=== PATIENT | female | born 1985 | race Caucasian/White ===

== ENCOUNTER 2016-09-08 09:38 | Inpatient (IN) | payer BC ==
--- NOTE | 2016-09-07 21:37 | PCM.LDHP ---
L&D History of Present Illness - General Date of Service: 09/08/16 Admit Problem/Dx: Admission Diagnosis/Problem Admission Diagnosis/Problem Source of Information: Patient History Limitations: Reports: No Limitations - History of Present Illness Introduction:: Reason for admission elective primary section, breech, history of abruptio placenta with demise last History present illness: The patient is a 30-year-old 7 para 3314 white female who is presently at 37-0/7 weeks gestational age upon admission for elective primary section. Patient has a breech presenting baby. This is confirmed by ultrasound and clinical exam. She has a history of an abruption placenta which occurred with her last resulting in demise, a consumptive coagulopathy was requirement for packed red blood cell, platelet and fresh frozen plasma replacement. Patient is admitted early to avoid potential recurrence of this and is scheduled for a primary section because of breech presentation. The procedure of primary section, its risks, benefits and alternatives including attempt at cephalic version or vaginal breech delivery discussed in detail. She appears to understand the risks , benefits, follow-up and alternatives and wishes to proceed with section. Consent is signed. INTERN history: 7 para 3314. Patient's last menstrual period was definite and started on 12/24/2015. She has monthly cycles. No contraception is time of her LMP. Her previous deliveries included the followin. Male infant born 10/15/2004-37 week-8 lbs. 7 oz.-spontaneous vaginal delivery- [place] 2. Female born [birth year]30/2007-37 weeks-7 lbs. 8 oz. -spontaneous vaginal delivery- labor-[place] 3. Female born 09/30/2007-38 weeks-elective induction-[place] 4. Miscarriage-08/04/2010 5. Male born 06/16/2012-34 weeks-4 lbs. 2 oz.-Yusdzjgj-lvwynokwu-yvvgivm hypertension-[place] 6. Male born 06/24/2015-35 weeks qwjubwlzs-WSOJ-yeadmtuce-complete abruption with resultant consumptive coagulopathy with requirement for blood products Patient's course has been relatively unremarkable. She received betamethasone at 24 weeks gestational age in anticipation of possible need for early delivery. She declined genetic testing. Abram Lucas depression screening 05/09/2016-normal. B strep screen was negative. History of macrosomic infant-first -9 lbs. 0 oz. risk of preeclampsia with last . Cervical intraepithelial neoplasia 3 on colposcopic directed biopsy done early in . T Dap declined course patient was initially seen on 03/15/2016. She was seen on a regular basis including a weekly basis since 30 weeks gestation. Her weight gain was from 181.2 pounds up to 234 pounds for a 53 pound weight gain. Fundal height has been ahead of schedule. Patient has had multiple ultrasounds with first ultrasound done at 12 weeks and 4 days. All ultrasounds have been essentially consistent with dates but showing a pattern which is placing the baby at a larger for gestational age weight. Baby was in a breech presentation on last evaluation in clinic. Laboratory testing in : Blood is A+, antibody screen is negative. First hemoglobin was 14.9 g/dL. Platelets 269,000. Varicella titer is equivocal. Rubella shows immunity. RPR is nonreactive. Hepatitis B and HIV assays were negative. GC and chlamydia assays negative. Second trimester testing shows a hemoglobin of 13.1 and platelets 206,000. Her 1 hour GTT was normal at 122. Group B strep screen was negative. Allergies: None Medications: 1. vitamins 2. Iron inform ferrous sulfate 325 mg per day. Past medical history: 1. Cervical intraepithelial neoplasia 3 per colposcopic directed biopsies done in [place] 2. History of vaginal delivery 5. 3. History of complete abruption of placenta, consumptive coagulopathy with need for blood product replacement, placement of the Bakra balloon to stop bleeding. 4. induced hypertension with previous 5. Depression with last 6. Cardiac issues with change in rhythm that apparently occurred with epidural per patient history Past surgical history: 1. Laparoscopic cholecystectomy 2004 2. Right oophorectomy/cyst removal 2013 3. Tonsillectomy and adenoidectomy 1995 Family history: Mother is alive and well. Father is also alive and well. One brother and one sister alive and well. Maternal grandmother is secondary lung cancer-was a smoker. Maternal grandfather liver cancer-was abusive of alcohol and tobacco. Paternal grandmother secondary to breast cancer. Grandfather , cause unknown. No clotting, bleeding, anesthesia problems noted in the family. Social history: Patient is . is Kevin Mckinney. She does not use any significant loss of alcohol, drugs or tobacco. 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 She lives in [place]. Review of systems: In general patient has no complaints. Baby has been active skin-negative Cardiovascular-no chest pain, exercise intolerance Respiratory-No concerns with infectious symptoms or asthma Breasts-Negative other than changes associated with GI -negative -changes associated with Musculoskeletal-minimal edema Neurologic-negative Physical exam: General the patient is a well-developed, well-nourished, pleasant female stated age in no acute distress. Skin is warm and dry without lesions. HEENT, neck and back within normal limits Lungs are clear with good breath sounds in all lung tello. Cardiovascular exam shows regular rate and rhythm without murmurs. Breast exam deferred having that done at first visit and found to be normal. Fundal height is consistent with dates at 40 weeks gestation Cervix shows no change today from 2 cm/80% effaced/-4/soft/mid position from 2 weeks ago Extremities show no significant edema. Neurologic unremarkable - Related Data Allergies/Adverse Reactions: Allergies Allergy/AdvReac Type Severity Reaction Status Date / Time No Known Allergies Allergy Verified 09/02/16 10:18 Home Medications: Home Meds Pnv No.122/Iron/Folic Acid [ Multi Tablet] 1 each PO DAILY 09/02/16 [ History] Past Medical History - Past Health History Medical/Surgical History: Denies Medical/Surgical History Cardiovascular History: Reports: Other (See Below) Gastrointestinal History: Reports: None INTERN History: Reports: Other OB/BYN History: Hx of Pre-eclampsia with last Hematologic History: Reports: Anemia Other Hematologic History: Fibrinogen 53.3[L], INR 1.38, PT 14.8 [H], Plt 138K, Fibrin Degrad. Product 20 ug/ml [H] - Past Surgical History HEENT Surgical History: Reports: Tonsillectomy GI Surgical History: Reports: Cholecystectomy Female Surgical History: Reports: Oophorectomy Social & Family History - Tobacco Use Smoking Status *Q: Never Smoker Used Tobacco, but Quit: Yes Month Tobacco Last Used: NA Second Hand Smoke Exposure: No - Recreational Drug Use Recreational Drug Use: No H&P Review of Systems - Review of Systems: Review Of Systems: See Below L&D Exam - Exam Exam: See Below - Vital Signs Weight: 101.151 kg Problem List Initiated/Reviewed/Updated: Yes Assessment/Plan Comment:: Assessment: 1. 37-0/7 week intrauterine upon admission for elective repeat section. Baby is in a peter breech presentation. 2. Patient has a history of a complete abruption of placenta in 2016 with resultant consumptive coagulopathy requiring platelets, fresh frozen plasma and packed red blood cell transfusion. Bakra was also placed intrauterine to decrease bleeding 3. History of -induced hypertension with previous 4. Group B strep negative. 5. T dap vaccines declined 6. Patient plans to nurse 7. Patient declined genetic testing 8. History of macrosomia, first , 9 lbs. 0 oz. 9. History of AMILCAR-3 on colposcopic directed biopsy during Plan: 1. Primary low uterine segment transverse section through Pfannenstiel skin incision under spinal block. Procedure, risks, benefits, alternatives of care all discussed in detail the patient. She appears to understand, wishes to proceed and has signed a consent. 2. DVT prophylaxis with SCDs 3. Will make sure a CBC, urinalysis and type and screen are performed prior to surgery 4. Ancef 2 g IV preop for infection prophylaxis 5. Encourage nursing behavior 6. Chemical Equipment Controller to be in attendance at time of delivery.
[2016-09-08] MEDS ORDERED: Bupivacaine 0.5% 30 ML SDV ONE (10:53)
[2016-09-08] MEDS ORDERED: ceFAZolin 1 GM Vial ONE (11:07)
[2016-09-08] MEDS ORDERED: Morphine PF 10 MG/10 ML SDV ONE (11:07)
[2016-09-08] MEDS ORDERED: Citric Acid/Sodium Citrate Solution 30 ML Cup PO ONE (11:08)
[2016-09-08] MEDS ORDERED: Metoclopramide 10 MG/2 ML SDV IVPUSH ONE (11:08)
[2016-09-08] MEDS ORDERED: Sodium Chloride 0.9% 10 ML Syringe FLUSH PRN (11:08)
[2016-09-08] MEDS ORDERED: Oxytocin 10 Units/1 ML SDV ONE ×2 (11:14→12:38)
[2016-09-08] MEDS ORDERED: Lactated Ringers 1,000 ML IV SCH (11:15)
--- NOTE | 2016-09-08 11:24 | PCM.PREANE ---
Preanesthetic Assessment - Anesthesia/Transfusion/Family Hx Anesthesia History: Prior Anesthesia Without Reaction Family History of Anesthesia Reaction: No Transfusion History: Prior Transfusion Without Reaction - Review of Systems General: No Symptoms Pulmonary: No Symptoms Cardiovascular: No Symptoms Gastrointestinal: No Symptoms Neurological: Seizure (at the age of 4) Other: Reports: None - Physical Assessment NPO Status Date: 09/07/16 NPO Status Time: 00:00 Pulse: 82 O2 Sat by Pulse Oximetry: 97 Respiratory Rate: 15 Blood Pressure: 116/70 Temperature: 36.7 C Vital Signs: Last Vital Signs Temp 36.7 C 09/08/16 11:01 Pulse 82 09/08/16 11:01 Resp 15 09/08/16 11:01 BP 116/70 09/08/16 11:01 Pulse Ox 97 09/08/16 11:01 Height: 1.65 m Weight: 105.233 kg ASA Class: 2 Mental Status: Alert & Oriented x3 Airway Class: Mallampati = 1 Dentition: Reports: Normal Dentition Thyro-Mental Finger Breadths: 3 Mouth Opening Finger Breadths: 3 ROM/Head Extension: Full Lungs: Clear to Auscultation, Normal Respiratory Effort Cardiovascular: Regular Rate, Regular Rhythm - Allergies Allergies/Adverse Reactions: Allergies Allergy/AdvReac Type Severity Reaction Status Date / Time No Known Allergies Allergy Verified 09/02/16 10:18 - Anesthesia Plan Pre-Op Medication Ordered: Antacids - Acknowledgements Anesthesia Type Planned: Spinal Pt an Appropriate Candidate for the Planned Anesthesia: Yes Alternatives and Risks of Anesthesia Discussed w Pt/Guardian: Yes Pt/Guardian Understands and Agrees with Anesthesia Plan: Yes PreAnesthesia Questionnaire - Past Health History Medical/Surgical History: Denies Medical/Surgical History HEENT History: Reports: None Cardiovascular History: Reports: Other (See Below) Gastrointestinal History: Reports: None Genitourinary History: Reports: None 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 Hx of Pre-eclampsia with last Hematologic History: Reports: Anemia Other Hematologic History: hx with previous Fibrinogen 53.3[L], INR 1.38, PT 14.8 [H], Plt 138K, Fibrin Degrad. Product 20 ug/ml [H] - Past Surgical History HEENT Surgical History: Reports: Tonsillectomy GI Surgical History: Reports: Cholecystectomy Female Surgical History: Reports: Oophorectomy - SUBSTANCE USE Smoking Status *Q: Never Smoker Tobacco Use Within Last Twelve Months: No Second Hand Smoke Exposure: No Days Per Week of Alcohol Use: 0 Number of Drinks Per Day: 0 Total Drinks Per Week: 0 Recreational Drug Use History: No - HOME MEDS Home Medications: Home Meds Pnv No.122/Iron/Folic Acid [ Multi Tablet] 1 each PO DAILY 09/02/16 [ History] - CURRENT (IN HOUSE) MEDS Current Meds: Current Medications Lactated Ringer's (Ringers, Lactated) 1,000 mls @ 125 mls/hr IV ASDIRECTED [facility] Sodium Chloride (Saline Flush) 10 ml FLUSH ASDIRECTED PRN PRN Reason: Keep Vein Open Discontinued Medications Bupivacaine HCl (Marcaine 0.5%) Confirm Administered Dose 30 ml .ROUTE .STK-MED ONE Stop: 09/08/16 10:54 Cefazolin Sodium (Ancef) Confirm Administered Dose 2 gm .ROUTE .STK-MED ONE Stop: 09/08/16 11:08 Citric Acid/Sodium Citrate (Bicitra Solution) 30 ml PO ONETIME ONE Stop: 09/08/16 11:09 Metoclopramide HCl (Reglan) 10 mg IVPUSH ONETIME ONE Stop: 09/08/16 11:09 Morphine Sulfate (Duramorph Pf) Confirm Administered Dose 10 mg .ROUTE .STK-MED ONE Stop: 09/08/16 11:08 Oxytocin (Pitocin) Confirm Administered Dose 10 unit .ROUTE .STK-MED ONE Stop: 09/08/16 11:15
[2016-09-08] MEDS ORDERED: Phenylephrine/Normal Saline 100 MCG/ML 10 ML Syringe ONE ×2 (12:15→12:33)
[2016-09-08] MEDS ORDERED: Lactated Ringers 1,000 ML ONE ×2 (12:37)
[2016-09-08] MEDS ORDERED: ePHEDrine/Normal Saline 25 MG/5 ML Syringe ONE (12:54)
--- NOTE | 2016-09-08 13:18 | PCM.POSTAN ---
POST ANESTHESIA ASSESSMENT - MENTAL STATUS Mental Status: Alert, Oriented - VITAL SIGNS Pulse Rate: 86 SaO2: 94 Resp Rate: 16 Blood Pressure: 82/45 Temperature: 36.1 C - RESPIRATORY Respiratory Status: respiratory rate WNL, Airway Patent, O2 Saturation Stable, Supplemental Oxygen - CARDIOVASCULAR CV Status: Pulse Rate WNL, Blood Pressure Stable - GASTROINTESTINAL GI Status: No Symptoms - PAIN Pain Score: 0 - POST OP HYDRATION Hydration Status: Adequate & Stable - OBSERVATIONS Free Text/Narrative:: NO ANESTHESIA COMPLICATIONS NOTED
[2016-09-08] MEDS ORDERED: Dextrose 5%-Lactated Ringers 1,000 ML IV SCH (14:05)
[2016-09-08] MEDS ORDERED: Naloxone 0.4 MG/ML SDV IVPUSH PRN (14:05)
[2016-09-08] MEDS ORDERED: Lanolin 100% Cream 7 GM Tube TOP PRN (14:05)
[2016-09-08] MEDS ORDERED: Docusate Sodium 100 MG Cap PO PRN (14:05)
[2016-09-08] MEDS ORDERED: ePHEDrine 50 MG/ML SDV IVPUSH PRN (14:05)
[2016-09-08] MEDS ORDERED: diphenhydrAMINE 50 MG/ML SDV IVPUSH PRN (14:05)
[2016-09-08] MEDS ORDERED: Ondansetron 4 MG/2 ML SDV IVPUSH PRN (15:32)
[2016-09-08] MEDS: Simethicone 80 MG Tab.Chew PO SCH ×2 (15:34→20:42)
[2016-09-08] MEDS: Ibuprofen 800 MG Tab PO SCH ×2 (15:34→20:42)
[2016-09-08] MEDS ORDERED: Ondansetron 4 MG/2 ML SDV ONE (15:51)
[2016-09-08] MEDS ORDERED: Promethazine 12.5 MG in Sodium Chloride 0.9% 50 ML IV ONE (17:08)
[2016-09-08] MEDS: Dextrose 5%-0.45% NaCl 1,000 ML IV SCH (18:46)
--- NOTE | 2016-09-08 21:42 | PCM.OPNOTE ---
- General Post-Op/Procedure Note Date of Surgery/Procedure: 09/08/16 Operative Procedure(s): Primary lower uterine segment transverse section through Pfannenstiel skin incision Findings: Alonso breech presentation, clear amniotic fluid. Uterus and ovary and fallopian tube left side were normal. Right fallopian tube and ovary surgically absent. Pre Op Diagnosis: 37-0/7 week intrauterine , breech presentation, history of previous abruption of placenta with demise post consumptive coagulopathy last . Post-Op Diagnosis: Same same with delivery of viable 7 lbs. 12 oz. female infant with Apgars of 8 and 9. Anesthesia Technique: Spinal Other Anesthesia Type: Marcaine 0.5% 20 mL total Primary Surgeon: Joey Gallego Secondary Surgeon: Mark Mckeon Anesthesia Provider: Tez Butler Fluid Replacement, Intraop: 1,100 EBL in mLs: 500 Drain/Tube Comments:: Indwelling bladder catheter Complications: None Condition: Good Free Text/Narrative:: Intake & Output 09/08/16 09/08/16 09/08/16 06:59 14:59 22:59 Intake Total 650 1250 Output Total 200 Balance 450 1250 Surgery duration: 31 minutes Complications: None Procedure: Patient was transferred the room and placed in a sitting position. She received spinal block. After confirmation of adequate anesthesia patient was placed in a supine position with a wedge under her right side to facilitate left lateral positioning. The patient was prepped and draped in usual fashion after Morgan catheter was already placed . The anesthetic was checked and found to be adequate. The Pfannenstiel skin incision was then made carried down to skin subcutaneous and fascial layers. The fascia was then undermined superiorly and inferiorly to allow for adequate operating room the recti muscles midline and preperitoneal fat was bluntly dissected. Peritoneal cavity was entered longitudinally. The vesicouterine peritoneum was then incised transversely and bladder flap was developed. Myometrium was incised transversely to the level of the amniotic sac. This incision was extended bilaterally in a blunt fashion. The amniotic sac was then ruptured resulting in clear amniotic fluid. A hand is placed and low uterine segment and the baby's breech was brought forth through the incision. The baby was completely delivered using complete breech extraction technique and fundal pressure in a routine fashion. The nose and mouth were bulb suctioned. Babys cord was clamped x2 cut and baby was handed off to attending auger press operator Dr Fontanez. Placenta was expressed after cord blood was obtained. Uterus was then exteriorized to allow for easier closure. The cervix was assessed and found to be dilated adequately to allow egress of blood. The uterus was closed in 2 layers. The first layer a running locked suture of 0 Monocryl, the second layer a running locked vertical mattress suture of 0 Monocryl. [id number] suture was placed at the left incision to control 1 bleeder. Hemostasis confirmed at this time. Sponge instrument needle counts are correct. The uterus was returned to the abdominal cavity and lateral gutters were cleared of blood. Once again sponge needle counts are correct. The anterior abdominal wall was closed with a #1 PDS suture from angle to angle. The subcutaneous area was found to be free of any bleeders. Skin was closed with a running subcuticular stitch of 3-0 Monocryl in a vertical mattress suture fashion using a Richard needle. Prineo mesh /glue was then applied to further approximate the incision. It should be noted that patient received 2 g of Ancef preoperatively for infection prophylaxis and had Pitocin infused after delivery of the placenta to facilitate uterine contraction. She also had sequential compression stockings in place for DVT prophylaxis. Patient was discharged from the operating room in satisfactory condition.
[2016-09-09] MEDS: Simethicone 80 MG Tab.Chew PO SCH ×5 (00:02→22:27)
[2016-09-09] MEDS: Dextrose 5%-0.45% NaCl 1,000 ML IV SCH (00:04)
[2016-09-09] MEDS: Ibuprofen 800 MG Tab PO SCH ×4 (04:29→22:26)
--- NOTE | 2016-09-09 06:38 | PCM.PNPP ---
- General Info Date of Service: 09/09/16 Functional Status: Reports: Pain Controlled - Review of Systems General: Reports: No Symptoms HEENT: Reports: No Symptoms Pulmonary: Reports: No Symptoms Cardiovascular: Reports: No Symptoms Gastrointestinal: Reports: No Symptoms Genitourinary: Reports: No Symptoms Musculoskeletal: Reports: No Symptoms Skin: Reports: No Symptoms Neurological: Reports: No Symptoms Psychiatric: Reports: No Symptoms - General Info Date of Service: 09/09/16 - Patient Data Vital Signs - most recent: Last Vital Signs Temp 36.6 C 09/09/16 00:00 Pulse 63 09/09/16 00:11 Resp 16 09/09/16 00:00 BP 105/67 09/09/16 00:11 Pulse Ox 97 09/09/16 00:11 Weight - most recent: 105.233 kg I&O - last 24 hours: Intake & Output 09/08/16 09/08/16 09/09/16 14:59 22:59 06:59 Intake Total 650 2350 Output Total 248 106 0014 Balance 450 1950 -1600 Med Orders - Current: Current Medications Diphenhydramine HCl (Benadryl) 25 mg IVPUSH Q6H PRN PRN Reason: Itching or Nausea Docusate Sodium (Colace) 100 mg PO Q12H PRN PRN Reason: Constipation Emollient Ointment (Lansinoh Hpa) 0 gm TOP ASDIRECTED PRN PRN Reason: Sore Nipples Ephedrine Sulfate (Ephedrine Sulfate) 5 mg IVPUSH SEECOMMENT PRN PRN Reason: Other Dextrose/Sodium Chloride (Dextrose 5%-1/2 Ns) 1,000 mls @ 125 mls/hr IV ASDIRECTED [facility] Last Admin: 09/09/16 00:04 Dose: 125 mls/hr Ibuprofen (Motrin) 800 mg PO Q8H [facility] Last Admin: 09/09/16 04:29 Dose: 800 mg Naloxone HCl (Narcan) 0.1 mg IVPUSH SEECOMMENT PRN PRN Reason: Respiratory Depression Ondansetron HCl (Zofran) 4 mg IVPUSH Q8H PRN PRN Reason: Nausea Last Admin: 09/08/16 15:55 Dose: 4 mg Oxycodone/Acetaminophen (Percocet 325-5 Mg) 2 tab PO Q4H PRN PRN Reason: Pain (moderate 4-6) Prenat Multivit/[place]/Iron/Folic Ac ( Plus Iron) 1 each PO DAILY [facility] Simethicone (Simethicone) 80 mg PO PCBED [facility] Last Admin: 09/09/16 00:02 Dose: Not Given Discontinued Medications Bupivacaine HCl (Marcaine 0.5%) Confirm Administered Dose 30 ml .ROUTE .STK-MED ONE Stop: 09/08/16 10:54 Last Admin: 09/08/16 12:15 Dose: 20 ml Cefazolin Sodium (Ancef) Confirm Administered Dose 2 gm .ROUTE .STK-MED ONE Stop: 09/08/16 11:08 Citric Acid/Sodium Citrate (Bicitra Solution) 30 ml PO ONETIME ONE Stop: 09/08/16 11:09 Last Admin: 09/08/16 11:38 Dose: 30 ml Ephedrine Sulfate (Ephedrine In Ns) Confirm Administered Dose 25 mg .ROUTE .[facility] ONE Stop: 09/08/16 12:55 Lactated Ringer's (Ringers, Lactated) 1,000 mls @ 125 mls/hr IV ASDIRECTED [facility] Last Admin: 09/08/16 11:35 Dose: 125 mls/hr Lactated Ringer's (Ringers, Lactated) Confirm Administered Dose 1,000 mls @ as directed .ROUTE .[facility] ONE Stop: 09/08/16 12:38 Lactated Ringer's (Ringers, Lactated) Confirm Administered Dose 1,000 mls @ as directed .ROUTE .[facility] ONE Stop: 09/08/16 12:38 Dextrose/Lactated Ringer's (Dextrose 5%-Lactated Ringers) 1,000 mls @ 125 mls/ hr IV ASDIRECTED [facility] Stop: 09/08/16 22:04 Last Admin: 09/08/16 14:48 Dose: 125 mls/hr Promethazine HCl 12.5 mg/ (Sodium Chloride) 50.5 mls @ 100 mls/hr IV ONETIME ONE Stop: 09/08/16 17:38 Last Admin: 09/08/16 17:44 Dose: 100 mls/hr Metoclopramide HCl (Reglan) 10 mg IVPUSH ONETIME ONE Stop: 09/08/16 11:09 Last Admin: 09/08/16 11:37 Dose: 10 mg Morphine Sulfate (Duramorph Pf) Confirm Administered Dose 10 mg .ROUTE .STK-MED ONE Stop: 09/08/16 11:08 Ondansetron HCl (Zofran) Confirm Administered Dose 4 mg .ROUTE .STK-MED ONE Stop: 09/08/16 15:52 Last Admin: 09/08/16 17:45 Dose: Not Given Oxytocin (Pitocin) Confirm Administered Dose 10 unit .ROUTE .STK-MED ONE Stop: 09/08/16 11:15 Oxytocin (Pitocin) Confirm Administered Dose 10 unit .ROUTE .STK-MED ONE Stop: 09/08/16 12:39 Phenylephrine HCl (Phenylephrine In Ns 100 Mcg/Ml) Confirm Administered Dose 1 mg .ROUTE .STK-MED ONE Stop: 09/08/16 12:16 Phenylephrine HCl (Phenylephrine In Ns 100 Mcg/Ml) Confirm Administered Dose 1 mg .ROUTE .STK-MED ONE Stop: 09/08/16 12:34 Sodium Chloride (Saline Flush) 10 ml FLUSH ASDIRECTED PRN PRN Reason: Keep Vein Open - Interaction Support Person: - Recovery Exam Fundal Tone: Firm Fundal Level: At Umbilicus Fundal Placement: Midline Lochia Amount: Small Lochia Color: Rubra/Red Perineum Description: Other (see below) Other Perinuem Description: francisca and rae care provide Episiotomy/Laceration: None Bladder Status: Indwelling Catheter in Place Urinary Elimination: Indwelling Catheter - Exam General: alert, oriented HEENT: Pupils equal Neck: supple Lungs: Clear to Auscultation, Normal Respiratory Effort Cardiovascular: Regular Rate, Regular Rhythm GI/Abdominal Exam: Normal Bowel Sounds, Soft, Non-Tender, No Organomegaly Extremities: Normal Inspection, Normal Range of Motion, Non-Tender Skin: warm, dry, intact Wound/Incisions: healing well Neurological: no new focal deficit Psy/Mental Status: alert, normal affect, normal mood - Problem List Review Problem List Initiated/Reviewed/Updated: Yes - My Orders Last 24 Hours: My Active Orders 09/09/16 Breakfast Regular Diet [DIET] - Assessment Assessment:: POD1 Doing great Routine care REgular diet. Rae out Keep IV in. - Plan Plan:: Assessment: 1. 37-0/7 week intrauterine s/p elective repeat section. Baby is in a peter breech presentation. Routine postop care
[2016-09-09] MEDS: Prenatal Multivitamin with Calcium/Folic Acid/Iron Tab PO SCH (09:04)
--- NOTE | 2016-09-09 09:07 | PCM48HPAN ---
Post Anesthesia Note - EVALUATION WITHIN 48HRS OF ANESTHETIC Vital Signs in Normal Range: Yes Patient Participated in Evaluation: Yes Respiratory Function Stable: Yes Airway Patent: Yes Cardiovascular Function Stable: Yes Hydration Status Stable: Yes Pain Control Satisfactory: Yes Nausea and Vomiting Control Satisfactory: Yes Mental Status Recovered: Yes - COMMENTS/OBSERVATIONS Free Text/Narrative:: Patient had no complaints other than a slight headache. She said it goes away when she is sleeping and is intensified when she sits up and is out of bed. Nurses gave her motrin to help and she said it improved the headache. I educated her about a PDPH and said I will be back to check on her again tomorrow.
[2016-09-09] MEDS: Acetaminophen/oxyCODONE 325-5 MG Tab PO PRN ×2 (09:17→17:39)
[2016-09-10] MEDS: Acetaminophen/oxyCODONE 325-5 MG Tab PO PRN ×2 (03:52→10:24)
[2016-09-10] MEDS: Ibuprofen 800 MG Tab PO SCH (06:38)
--- NOTE | 2016-09-10 08:04 | PCM.DCSUM1 ---
Discharge Summary - Discharge Data Discharge Date: 09/10/16 Discharge Disposition: Home, Self-Care 01 Condition: Good - Patient Summary/Data Operative Procedure(s) Performed: Primary lower uterine segment transverse section through Pfannenstiel skin incision Hospital Course: Admitted for primary section for breech. History of abruption. - Patient Instructions Diet: Usual Diet as Tolerated Activity: No Strenuous Activities Activity, Other: pelvic rest Driving: Do Not Drive Showering/Bathing: May Shower Wound/Incision Care: Keep Operative Site/Wound Site Clean and Dry Notify Provider of: Fever, Increased Pain, Swelling and Redness, Drainage, Nausea and/or Vomiting - Discharge Plan Home Medications: Home Meds Pnv No.122/Iron/Folic Acid [ Multi Tablet] 1 each PO DAILY 09/02/16 [ History] Referrals: Joey Gallego MD [Primary Care Provider] - (4 weeks ) - General Info Date of Service: 09/10/16 Functional Status: Reports: Pain Controlled - Review of Systems General: Reports: No Symptoms HEENT: Reports: No Symptoms Pulmonary: Reports: No Symptoms Cardiovascular: Reports: No Symptoms Gastrointestinal: Reports: No Symptoms Genitourinary: Reports: No Symptoms Musculoskeletal: Reports: No Symptoms Skin: Reports: No Symptoms Neurological: Reports: No Symptoms Psychiatric: Reports: No Symptoms - Patient Data Vitals - Most Recent: Last Vital Signs Temp 36.4 C 09/10/16 04:00 Pulse 79 09/10/16 04:00 Resp 14 09/10/16 04:00 BP 118/57 L 09/10/16 04:00 Pulse Ox 99 09/10/16 04:00 Weight - Most Recent: 105.233 kg I&O - Last 24 hours: Intake & Output 09/09/16 09/10/16 09/10/16 22:59 06:59 14:59 Intake Total 1480 500 Balance 1480 500 Med Orders - Current: Current Medications Diphenhydramine HCl (Benadryl) 25 mg IVPUSH Q6H PRN PRN Reason: Itching or Nausea Docusate Sodium (Colace) 100 mg PO Q12H PRN PRN Reason: Constipation Emollient Ointment (Lansinoh Hpa) 0 gm TOP ASDIRECTED PRN PRN Reason: Sore Nipples Ephedrine Sulfate (Ephedrine Sulfate) 5 mg IVPUSH SEECOMMENT PRN PRN Reason: Other Dextrose/Sodium Chloride (Dextrose 5%-1/2 Ns) 1,000 mls @ 125 mls/hr IV ASDIRECTED [facility] Last Admin: 09/09/16 00:04 Dose: 125 mls/hr Ibuprofen (Motrin) 800 mg PO Q8H [facility] Last Admin: 09/10/16 06:38 Dose: 800 mg Naloxone HCl (Narcan) 0.1 mg IVPUSH SEECOMMENT PRN PRN Reason: Respiratory Depression Ondansetron HCl (Zofran) 4 mg IVPUSH Q8H PRN PRN Reason: Nausea Last Admin: 09/08/16 15:55 Dose: 4 mg Oxycodone/Acetaminophen (Percocet 325-5 Mg) 2 tab PO Q4H PRN PRN Reason: Pain (moderate 4-6) Last Admin: 09/10/16 03:52 Dose: 2 tab Prenat Multivit/[place]/Iron/Folic Ac ( Plus Iron) 1 each PO DAILY [facility] Last Admin: 09/09/16 09:04 Dose: Not Given Simethicone (Simethicone) 80 mg PO PCBED [facility] Last Admin: 09/09/16 22:27 Dose: 80 mg Discontinued Medications Bupivacaine HCl (Marcaine 0.5%) Confirm Administered Dose 30 ml .ROUTE .STK-MED ONE Stop: 09/08/16 10:54 Last Admin: 09/08/16 12:15 Dose: 20 ml Cefazolin Sodium (Ancef) Confirm Administered Dose 2 gm .ROUTE .STK-MED ONE Stop: 09/08/16 11:08 Citric Acid/Sodium Citrate (Bicitra Solution) 30 ml PO ONETIME ONE Stop: 09/08/16 11:09 Last Admin: 09/08/16 11:38 Dose: 30 ml Ephedrine Sulfate (Ephedrine In Ns) Confirm Administered Dose 25 mg .ROUTE .STK- MED ONE Stop: 09/08/16 12:55 Lactated Ringer's (Ringers, Lactated) 1,000 mls @ 125 mls/hr IV ASDIRECTED [facility] Last Admin: 09/08/16 11:35 Dose: 125 mls/hr Lactated Ringer's (Ringers, Lactated) Confirm Administered Dose 1,000 mls @ as directed .ROUTE .STK-MED ONE Stop: 09/08/16 12:38 Lactated Ringer's (Ringers, Lactated) Confirm Administered Dose 1,000 mls @ as directed .ROUTE .[facility]-MED ONE Stop: 09/08/16 12:38 Dextrose/Lactated Ringer's (Dextrose 5%-Lactated Ringers) 1,000 mls @ 125 mls/ hr IV ASDIRECTED [facility] Stop: 09/08/16 22:04 Last Admin: 09/08/16 14:48 Dose: 125 mls/hr Promethazine HCl 12.5 mg/ (Sodium Chloride) 50.5 mls @ 100 mls/hr IV ONETIME ONE Stop: 09/08/16 17:38 Last Admin: 09/08/16 17:44 Dose: 100 mls/hr Metoclopramide HCl (Reglan) 10 mg IVPUSH ONETIME ONE Stop: 09/08/16 11:09 Last Admin: 09/08/16 11:37 Dose: 10 mg Morphine Sulfate (Duramorph Pf) Confirm Administered Dose 10 mg .ROUTE .[facility]-MED ONE Stop: 09/08/16 11:08 Ondansetron HCl (Zofran) Confirm Administered Dose 4 mg .ROUTE .[facility]-MED ONE Stop: 09/08/16 15:52 Last Admin: 09/08/16 17:45 Dose: Not Given Oxytocin (Pitocin) Confirm Administered Dose 10 unit .ROUTE .STK-MED ONE Stop: 09/08/16 11:15 Oxytocin (Pitocin) Confirm Administered Dose 10 unit .ROUTE .[facility]-MED ONE Stop: 09/08/16 12:39 Phenylephrine HCl (Phenylephrine In Ns 100 Mcg/Ml) Confirm Administered Dose 1 mg .ROUTE .ST-MED ONE Stop: 09/08/16 12:16 Phenylephrine HCl (Phenylephrine In Ns 100 Mcg/Ml) Confirm Administered Dose 1 mg .ROUTE .ST-MED ONE Stop: 09/08/16 12:34 Sodium Chloride (Saline Flush) 10 ml FLUSH ASDIRECTED PRN PRN Reason: Keep Vein Open - Exam General: Reports: alert, oriented HEENT: Reports: Pupils equal, Pupils reactive, EOMI, Mucous membr. moist/pink Neck: Reports: supple Lungs: Reports: Normal Respiratory Effort Cardiovascular: Reports: Regular Rate, Regular Rhythm GI/Abdominal Exam: Normal Bowel Sounds, Soft, Non-Tender, No Organomegaly, No Distention, No Abnormal Bruit, No Mass, Pelvis Stable Back Exam: Reports: Normal Inspection, Full Range of Motion Extremities: Normal Inspection, Normal Range of Motion, Non-Tender, No Pedal Edema, Normal Capillary Refill Skin: Reports: warm, dry, intact Wound/Incisions: Reports: healing well Neurological: Reports: no new focal deficit Psy/Mental Status: Reports: alert, normal affect, normal mood *Q Meaningful Use (DIS) - VTE *Q VTE Criteria *Q: - Stroke *Q Stroke Criteria *Q: - AMI *Q AMI Criteria *Q:
[2016-09-10] MEDS: Prenatal Multivitamin with Calcium/Folic Acid/Iron Tab PO SCH (10:26)
[2016-09-10] MEDS: Simethicone 80 MG Tab.Chew PO SCH (12:07)
[2016-09-10 12:16] VITALS: BP 123/71
--- NOTE | 2016-09-10 17:45 | PCM48HPAN ---
Post Anesthesia Note - EVALUATION WITHIN 48HRS OF ANESTHETIC Vital Signs in Normal Range: Yes Patient Participated in Evaluation: No Respiratory Function Stable: Yes Airway Patent: Yes Cardiovascular Function Stable: Yes Hydration Status Stable: Yes Pain Control Satisfactory: Yes Nausea and Vomiting Control Satisfactory: Yes Mental Status Recovered: Yes - COMMENTS/OBSERVATIONS Free Text/Narrative:: Report from nurses upon discharge was the patients headache had resolved last night at about 2300 (7-21-17) and was feeling good before being discharged.
[2016-09-11] MEDS ORDERED: [UNRECOGNIZED DRUG - REMARK] PO SCH (09:00)
== END 2016-09-10 11:15 | disposition home or self-care (01) | DRG 540 ==
LOC: JD.OB 09:38
PROVIDERS: ADMIT Obstetrics & Gynecology; ATTEND Obstetrics & Gynecology
PROC: 10D00Z1 Extraction of Products of Conception, Low, Open Approach (ICD-10-PCS; principal; 2016-09-08)
DX: O32.1XX0 Maternal care for breech presentation, not applicable or unspecified (principal); Z3A.37 37 weeks gestation of pregnancy; Z37.0 Single live birth
CPT/HCPCS: 01961; 36415; 85025; 94762; A9270-GY; J0690; J2270; J2405; J2550; J2590; J2765; J7042; J7050; J7120

== ENCOUNTER 2019-07-27 15:50 | Emergency (ER) | payer OTHER ==
--- NOTE | 2019-07-27 16:39 | EDM.PDOC ---
ED HPI GENERAL MEDICAL PROBLEM - General Chief Complaint: Abdominal Pain Stated Complaint: ABDOMINAL PAIN Time Seen by Provider: 07/27/19 16:03 Source of Information: Reports: Patient History Limitations: Reports: No Limitations - History of Present Illness INITIAL COMMENTS - FREE TEXT/NARRATIVE: Patient is a 33-year-old female who presents to the emergency department with complaints of recurrent left ovarian pain, and tenderness to her anterior neck. Patient states she has a long history of recurrent ovarian cysts as well as being a carrier of the BRCA gene. She has had a hysterectomy and right oophorectomy, however she does retain her left ovary. They removed her right ovary because she had recurrent ovarian cysts which required surgical excision as well as to reduce the risk of ovarian cancer. She states that this morning she had a sharp stabbing pain in her left pelvic area which brought her to her knees. The pain resolved shortly thereafter and has not recurred. She has been having pain such as this more frequently. She also complains of hot flashes, fatigue, and generalized body aches. She is concerned that her thyroid may not be functioning properly. She states that last night, her throat felt like it was swollen, however she did not have a sore throat. Now she complains of tenderness to her anterior neck over the area of the thyroid and trachea. She denies any known fever, chills, nausea, or vomiting. Patient does not have a primary care provider. Last time she saw a provider was when she saw her GUN FITTER, Dr. Gallego to have her hysterectomy which was about 2 years ago. Left Abdominal Pain Score (Numeric/FACES): 7 - Related Data Allergies Allergy/AdvReac Type Severity Reaction Status Date / Time No Known Allergies Allergy Verified 07/27/19 16:06 Home Meds: Home Meds . [No Known Home Meds] 07/27/19 [History] Past Medical History - Past Health History Medical/Surgical History: Denies Medical/Surgical History HEENT History: Reports: None Other HEENT History: wears glasses Cardiovascular History: Reports: Other (See Below) Respiratory History: Reports: None Gastrointestinal History: Reports: None Other Gastrointestinal History: RUQ pain Genitourinary History: Reports: None GUN FITTER History: Reports: Other (See Below), Other GUN FITTER History: hx of placental abruption with 35 week demise. Hx of Pre-eclampsia with last Musculoskeletal History: Reports: None Neurological History: Reports: None Psychiatric History: Reports: Depression Endocrine/Metabolic History: Reports: None Hematologic History: Reports: Anemia Other Hematologic History: hx with previous Fibrinogen 53.3[L], INR 1.38, PT 14.8 [H], Plt 138K, Fibrin Degrad. Product 20 ug/ml [H] Immunologic History: Reports: None Oncologic (Cancer) History: Reports: None Dermatologic History: Reports: None - Past Surgical History Head Surgeries/Procedures: Reports: None HEENT Surgical History: Reports: Tonsillectomy Respiratory Surgical History: Reports: None Female Surgical History: Reports: Oophorectomy Endocrine Surgical History: Reports: None Neurological Surgical History: Reports: None Musculoskeletal Surgical History: Reports: None Oncologic Surgical History: Reports: None Dermatological Surgical History: Reports: None Social & Family History - Family History Family Medical History: Noncontributory Other Dermatologic Family History: see history on chart - Tobacco Use Smoking Status *Q: Never Smoker - Caffeine Use Caffeine Use: Reports: Coffee - Recreational Drug Use Recreational Drug Use: No ED ROS GENERAL - Review of Systems Review Of Systems: See Below Constitutional: Reports: Fatigue. Denies: Fever, Chills, Weakness, Decreased Appetite, Weight Loss HEENT: Reports: Throat Pain Respiratory: Reports: No Symptoms. Denies: Shortness of Breath, Cough Cardiovascular: Reports: No Symptoms Endocrine: Reports: No Symptoms GI/Abdominal: Reports: No Symptoms : Reports: Pain Musculoskeletal: Reports: No Symptoms Skin: Reports: No Symptoms Neurological: Reports: No Symptoms Psychiatric: Reports: No Symptoms Hematologic/Lymphatic: Reports: No Symptoms Immunologic: Reports: No Symptoms ED EXAM, GI/ABD - Physical Exam Exam: See Below Exam Limited By: No Limitations General Appearance: Alert, WD/WN, No Apparent Distress Neck: Other (Small left-sided thyroid nodule). No: Lymphadenopathy (L), Lymphadenopathy (R) Respiratory/Chest: No Respiratory Distress, Lungs Clear, Normal Breath Sounds, No Accessory Muscle Use, Chest Non-Tender Cardiovascular: Normal Peripheral Pulses, Regular Rate, Rhythm, No Edema, No Gallop, No JVD, No Murmur, No Rub GI/Abdominal Exam: Normal Bowel Sounds, Soft, No Organomegaly, No Distention, No Abnormal Bruit, No Mass, Pelvis Stable, Tender (Mild left-sided pelvic tenderness) Neurological: Alert, Oriented, CN II-XII Intact, Normal Cognition, Normal Gait, Normal Reflexes, No Motor/Sensory Deficits Psychiatric: Normal Affect, Normal Mood Skin Exam: Warm, Dry, Intact, Normal Color, No Rash Course - Vital Signs Last Recorded V/S: Last Vital Signs Temp 97.8 F 07/27/19 16:03 Pulse 107 H 07/27/19 16:03 Resp 16 07/27/19 16:03 BP 115/56 L 07/27/19 16:03 Pulse Ox 96 07/27/19 16:03 - Orders/Labs/Meds Labs: Laboratory Tests 07/27/19 07/27/19 07/27/19 Range/Units 16:00 16:45 16:45 WBC 8.48 (3.98-10.04) K/mm3 RBC 4.39 (3.98-5.22) M/mm3 Hgb 13.2 D (11.2-15.7) gm/dl Hct 40.4 (34.1-44.9) % MCV 92.0 (79.4-94.8) fl MCH 30.1 (25.6-32.2) pg MCHC 32.7 (32.2-35.5) g/dl RDW Std Deviation 44.8 (36.4-46.3) fL Plt Count 212 (182-369) K/mm3 MPV 9.6 (9.4-12.3) fl Neut % (Auto) 73.8 H (34.0-71.1) % Lymph % (Auto) 16.4 L (19.3-51.7) % Clark % (Auto) 8.8 (4.7-12.5) % Eos % (Auto) 0.5 L (0.7-5.8) Baso % (Auto) 0.4 (0.1-1.2) % Neut # (Auto) 6.26 H (1.56-6.13) K/mm3 Lymph # (Auto) 1.39 (1.18-3.74) K/mm3 Clark # (Auto) 0.75 H (0.24-0.36) K/mm3 Eos # (Auto) 0.04 (0.04-0.36) K/mm3 Baso # (Auto) 0.03 (0.01-0.08) K/mm3 Sodium 141 (136-145) mEq/L Potassium 3.4 L (3.5-5.1) mEq/L Chloride 106 (98-107) mEq/L Carbon Dioxide 27 (21-32) mEq/L Anion Gap 11.4 (5-15) BUN 13 (7-18) mg/dL Creatinine 1.0 (0.55-1.02) mg/dL Est Cr Clr Drug Dosing 73.51 mL/min Estimated GFR (MDRD) > 60 (>60) mL/min BUN/Creatinine Ratio 13.0 L (14-18) Glucose 127 H (74-106) mg/dL Calcium 8.2 L (8.5-10.1) mg/dL Total Bilirubin 0.4 (0.2-1.0) mg/dL AST 7 L (15-37) U/L ALT 14 (14-59) U/L Alkaline Phosphatase 39 L (46-116) U/L C-Reactive Protein 1.1 H* (<1.0) mg/dL Total Protein 6.4 (6.4-8.2) g/dl Albumin 3.3 L (3.4-5.0) g/dl Globulin 3.1 gm/dL Albumin/Globulin Ratio 1.1 (1-2) Free T4 0.96 (0.76-1.46) ng/dL TSH 3rd Generation 0.840 (0.358-3.74) uIU/mL Urine Color Yellow (Yellow) Urine Appearance Clear (Clear) Urine pH 7.0 (5.0-8.0) Ur Specific [place] 1.025 (1.005-1.030) Urine Protein 1+ H (Negative) Urine Glucose (UA) Negative (Negative) Urine Ketones Trace H (Negative) Urine Occult Blood Negative (Negative) Urine Nitrite Negative (Negative) Urine Bilirubin Negative (Negative) Urine Urobilinogen 0.2 (0.2-1.0) Ur Leukocyte Esterase Negative (Negative) Urine RBC 0-5 (0-5) /hpf Urine WBC 0-5 (0-5) /hpf Ur Squamous Epith Cells 0-5 (0-5) /hpf Urine Bacteria Few (FEW) /hpf Urine Mucus Moderate H (FEW) /hpf - Re-Assessments/Exams Free Text/Narrative Re-Assessment/Exam: On exam, patient does have a small nodule noted in the left thyroid. She is mildly tender to the left pelvic region, however she states it is much better than it was. We will do CBC, CMP, TSH, free T4, urinalysis, and transvaginal ultrasound. 07/27/19 18:38 Patient's work-up was grossly unremarkable. Thyroid and T4 were normal. WBCs were normal. Potassium slightly low at 3.4. Urinalysis was negative for any infection. Transvaginal ultrasound showed a 2.4 cm dominant follicle with a small amount of fluid free fluid felt to be physiologic. Simona these findings with the patient. I did recommend that she schedule follow-up appointment to establish care with a primary care provider and discuss the possibility of a thyroid ultrasound. She is in agreement with this plan. Discharge instructions as documented. Departure - Departure Time of Disposition: 18:39 Disposition: Home, Self-Care 01 Condition: Good Clinical Impression: Pelvic pain - Discharge Information *PRESCRIPTION DRUG MONITORING PROGRAM REVIEWED*: No *COPY OF PRESCRIPTION DRUG MONITORING REPORT IN PATIENT HAILEE: No Instructions: Pelvic Pain, Female Referrals: Reba Reid PA-C [Physician Music Engraver] - Forms: ED Department Discharge Additional Instructions: You were seen in the emergency department today for recurrent left-sided pelvic pain, fatigue, hot flashes, and discomfort in the anterior portion of her neck. Work-up included blood work, urinalysis, and a transvaginal ultrasound. Overall, your work-up was found to be normal. Your thyroid levels are normal. Potassium was slightly low. There are no signs of infection. The pelvic ultrasound showed a 2.4 cm dominant follicle but no large ovarian cysts. As we discussed, there was a small nodule on the left side of your thyroid. I would recommend that you schedule follow-up appointment in the clinic to discuss the possibility of a thyroid ultrasound and further work-up as needed. Return to the ER as needed. Sepsis Event Note - Evaluation Sepsis Screening Result: No Definite Risk - Focused Exam Vital Signs: Vital Signs Temp Pulse Resp BP Pulse Ox 07/27/19 16:03 97.8 F 107 H 16 115/56 L 96 Date Exam was Performed: 07/27/19 Time Exam was Performed: 21:47
--- NOTE | 2019-07-27 17:55 | US ---
Pelvic ultrasound: Multiple real-time images were obtained transvaginally. Comparison: Previous pelvic ultrasound study of 10/26/17. Previous hysterectomy is noted. Previous right oophorectomy is seen. Follicles are seen within the left ovary with dominant follicle measuring 2.4 cm. Small amount of free fluid is seen believed to be physiologic. Measurements: Left ovary: 4.0 x 2.9 x 3.7 cm Impression: 1. Findings as noted above. Nothing acute is seen. Diagnostic code #2 This report was dictated in MDT
== END 2019-07-27 18:47 | disposition home or self-care (01) ==
LOC: JD.ED 15:50
DX: R10.2 Pelvic and perineal pain (principal); E04.1 Nontoxic single thyroid nodule
CPT/HCPCS: 36415; 76857; 76857-26; 80053; 81001; 84439; 84443; 85025; 86140; 99282; 99284-25

== ENCOUNTER 2022-03-14 19:11 | Emergency (ER) | payer BC, OTHER ==
[2022-03-14] MEDS ORDERED: Ondansetron 4 MG/2 ML SDV IVPUSH ONE (19:22)
[2022-03-14] MEDS ORDERED: Sodium Chloride 0.9% 1,000 ML IV SCH (19:30)
[2022-03-14] MEDS: Sodium Chloride 0.9% 10 ML Syringe FLUSH PRN ×2 (20:02→20:35)
[2022-03-14] MEDS ORDERED: Iopamidol 612 MG/ML 100 ML Bottle IVPUSH ONE (20:25)
[2022-03-14] MEDS ORDERED: Sodium Chloride 0.9% 10 ML Syringe FLUSH ONE (20:25)
== END 2022-03-14 21:48 | disposition home or self-care (01) ==
LOC: JD.ED 19:11
DX: N83.202 Unspecified ovarian cyst, left side (principal)
CPT/HCPCS: 36415; 74177; 80053; 81001; 85025; 96374; 99284; J2405; J3490; Q9967